=== PATIENT | male | born 1975 | race Caucasian/White ===

== ENCOUNTER 2022-02-14 09:06 | Observation (INO) ==
[~2022-02-14 09:06] MED LIST: Buffered Lidocaine 1% SYRIN 1 ml INTRADERM ONE; Lactated Ringers 1000 ml BAG 1,000 ML IV SCH; Lidocaine 2% PF 5 ML VIAL ONE; Naloxone 0.4 mg VIAL 0.4 mg/ml 1 ml VIAL IV PRN; Ondansetron 4 mg VIAL 2 MG/ML 2 ml VIAL IV PRN; Propofol 10 MG/ML 20 ML BTL ONE
[2022-02-14] MEDS ORDERED: ceFAZolin 2 GM PREMIX 2 GM/50 ML BAG ONE (09:27)
[2022-02-14] MEDS ORDERED: Dexamethasone IV 4 MG/ML VIAL 1 ml VIAL ONE ×2 (09:43→10:54)
[2022-02-14] MEDS ORDERED: Midazolam 2 mg/2 ml VIAL 1 mg/ml 2 ml VIAL (2 mg) ONE (09:43)
[2022-02-14] MEDS ORDERED: ROPIVACAINE 5 MG/ML 30 ML BTL (0.5%) ONE (09:44)
[2022-02-14] MEDS ORDERED: fentaNYL 250 mcg/5 ml 50 MCG/ML 5 ml VIAL (250 MCG) ONE (10:18)
[2022-02-14] MEDS ORDERED: Lidocaine 1% w EPI 1:200,000 SDV 30 ML VIAL ONE (10:22)
[2022-02-14] MEDS ORDERED: Bupivacaine 0.5% SDV PF 30ML VIAL ONE (10:22)
[2022-02-14] MEDS ORDERED: Bupivacaine 0.25% EPI 200,000 30 ML SDV ONE (10:23)
[2022-02-14] MEDS ORDERED: Vancomycin 1,000 MG VIAL ONE (10:23)
[2022-02-14] MEDS ORDERED: Ketamine HCL 50 mg/ml 10 ml VIAL (500 MG) ONE (10:35)
[2022-02-14] MEDS ORDERED: Sterile Water for Inj 10 ML ONE (10:49)
[2022-02-14] MEDS ORDERED: Ondansetron 4 mg VIAL 2 MG/ML 2 ml VIAL ONE (10:54)
[2022-02-14] MEDS ORDERED: Acetaminophen IV 1 GM/100ML 1,000 MG/100 ML BAG IV ONE (10:54)
[2022-02-14] MEDS ORDERED: Glycopyrrolate IV 0.2 MG/ML 1 ML VIAL ONE (11:07)
[2022-02-14] MEDS ORDERED: HYDROmorphone 0.5 MG/0.5 ML SYRINGE ONE (11:33)
[2022-02-14] MEDS ORDERED: fentaNYL 100 mcg/2 ml 50 MCG/ML VIAL ONE ×2 (12:46→13:27)
[2022-02-14] MEDS ORDERED: Lactulose 30 ml UDC PO PRN (13:25)
[2022-02-14] MEDS ORDERED: Ondansetron 4 mg VIAL 2 MG/ML 2 ml VIAL IV PRN (13:25)
[2022-02-14] MEDS ORDERED: Ondansetron ODT 4 mg TAB 4 MG TAB PO PRN (13:25)
[2022-02-14] MEDS ORDERED: Magnesium Hydroxide LIQ 30 ML UDC PO PRN (13:25)
[2022-02-14] MEDS ORDERED: Morphine 2 MG/ML SYRINGE IV PRN (13:25)
[2022-02-14] MEDS: fentaNYL 100 mcg/2 ml 50 MCG/ML VIAL IV PRN ×2 (13:28→14:09)
[2022-02-14] MEDS ORDERED: Lactated Ringers 1000 ml BAG 1,000 ML IV SCH (14:00)
[2022-02-14] MEDS: ceFAZolin 1 GM ADVAN 1 GM in NS 0.9% 50 ML 50 ML IVPB SCH (17:57)
[2022-02-14] MEDS: Magnesium Hydroxide LIQ 30 ML UDC PO SCH (21:34)
[2022-02-15] MEDS: ceFAZolin 1 GM ADVAN 1 GM in NS 0.9% 50 ML 50 ML IVPB SCH ×2 (02:18→10:18)
[2022-02-15 05:25] LABS: Hematocrit 34 % (42-52); Hemoglobin 11.3 g/dL (14.0-18.0); Mean Platelet Volume 7.3 fL (7.4-10.4); Platelet Count 217 10^3/uL (150-450)
[2022-02-15 05:51] LABS: Potassium 4.3 mmol/L (3.5-5.0); eGFR CKD-EPI 116.6 (>60)
[2022-02-15] MEDS: Magnesium Hydroxide LIQ 30 ML UDC PO SCH (08:34)
[2022-02-15] MEDS ORDERED: Vitamin THERAPEUTIC TAB PO SCH (09:00)
[2022-02-15 11:26] VITALS: BP 100/61
== END 2022-02-15 13:20 | disposition home or self-care (01) ==
LOC: OR 09:06 → SSU 09:06
PROVIDERS: ADMIT Orthopaedic Surgery; ATTEND Orthopaedic Surgery